=== PATIENT | male | born 1985 | race Caucasian/White ===

== ENCOUNTER 2019-01-17 21:58 | Inpatient (IN) | payer OTHER ==
[~2019-01-17] VITALS: Ht 188 cm; Wt 84.1 kg
[2019-01-18 01:23] VITALS: Ht 188 cm; Wt 84.1 kg
--- NOTE | 2019-01-18 01:40 | HP ---
Date/Time of Note Date/Time of Note DATE: 01/18/19 TIME: 01:40 Assessment/Plan VTE Prophylaxis SCD applied (from Nsg): Yes Pharmacological prophylaxis: NA/contraindicated Pharm contraindication: low risk/ambulating Assessment/Plan Hospital Course This is a 33-year-old male being admitted to the [facility] floor for: #1 bilateral community-acquired pneumonia: Recently treated with azithromycin with no improvement. He was given ceftriaxone and azithromycin from the transferring facility. I will switch the patient to Levaquin 750 mg IV every 24 hours. #2 chest pain: Rule out ACS versus costochondritis secondary to cough from pneumonia, patient also is a IV drug user.. Will trend cardiac enzymes x2, will check an echocardiogram as well especially in the setting of IV drug use. 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 We will need to encourage cessation. Smoking cessation encouraged #4 homelessness: Social work consult #5 suicidal ideation: At the current time patient does not reporting any suicidal ideation. Patient was evaluated by telemetry psychiatry at the transfer facility for his supposed suicidal ideation. Patient was not deemed a 5150 hold as per the ED physician. Nor does he require inpatient psych admission. Will place a psychiatric consult. #6 DVT GI prophylaxis: SCDs, no GI prophylaxis indicated Further treatment strategy will be implemented as per the clinical course. HPI/ROS Admit Date/Time Admit Date/Time Jan 18, 2019 at 01:14 Hx of Present Illness Chief complaint: Shortness of breath This is a 33-year-old male who presented to [facility] complaining of shortness of breath and chest pain that started approximately 2 nights after using IV drugs. He was diagnosed with bronchitis that an outside hospital he was given a Z-Alex. The apparently chest x-ray at that time was negative. He p resented to [facility] complaining of a cough but denied any fevers. He is homeless. He did report using heroin and meth every day he also reported suicidal ideation due to doing drugs and being homeless and being kicked out from the family. He denied any plan for suicidal ideation and denied any homicidal ideation. Vitals on presentation at the transferring hospital were blood pressure 100/61 temperature 37.1C pulse 70 sp02 98% on room air respirations 18. Chest x-ray showed a right-sided upper lobe infiltrate as well as left basilar infiltrates. He was treated with ceftriaxone and azithromycin. Patient was evaluated by telemetry psychiatry at the transfer facility for his supposed suicidal ideation. Patient was not deemed a 5150 hold as per the ED physician. Nor does he require inpatient psych admission. Pertinent laboratory findings from the transfer facility Lactic acid 1.76 Urine drug screen: Opioids, methamphetamine White blood cell count 11.6/hemoglobin 11/hematocrit 32.4 BMP: Sodium 136 potassium 3.9 chloride 100 carbon dioxide 18 BUN 10 creatinine 0.82 next Chest x-ray: Right upper lobe and left basilar infiltrate, finding consistent with pneumonia next EKG: Normal sinus rhythm no ST elevation or depression. No T wave inversion. ROS Const: As per HPI Eyes : No pain discharge or redness or change in visual acuity ENT: No pain, sore throat, congestion, congestion, dysphagia or discharge Respiratory: As per HPI Cardiovascular: No chest pain, palpitation, PND, or edema GI : no change in appetite, abdominal pain, nausea, vomiting, diarrhea, constipation, or change in the color his stool Genitourinary: No dysuria, hematuria, flank pain , discharge or CVA tenderness Musculoskeletal: No joint pain, back pain, neck pain, restricted range of motion in neck or joints Skin: No rash, bruising or hives Neuro: No headache, dizziness, syncope, seizure, focal weakness Endocrine: No polyuria, polydipsia, temperature intolerance Psych: No hallucination, depression, anxiety or suicidal ideation PMH/Family/Social Past Medical History Medical History: no pertinent history Coded Allergies: No Known Allergy (Unverified , 01/18/19) Past Surgical History Past Surgical Hx: no surgical history Social History Smoking Status: Current some day smoker Drug Use: other (Heroin, meth) Exam/Review of Systems Exam Exam General: Patient is currently lying in bed in no acute distress, he appears calm HEENT: Atraumatic, normocephalic. The pupils are equal, round and reactive. Extraocular motor are intact Neck: Supple with full range of motion. No rigidity or meningismus Chest: Nontender Lungs: Coarse breath sounds bilaterally, rales at the right upper lobe Heart: Normal S1-S2, Regular rhythm and rate. Abdomen: Soft , nontender, nondistended , bowel sounds are present. No guarding no rebound tenderness , No masses or organomegaly. No costovertebral temporal angle mass Extremities: Normal to inspection, no edema no cyanosis Neurologic: Normal mental status, speech normal, cranial nerves II through XII are intact, motor and sensory are intact, GARY ARAYA Jan 18, 2019 01:40
[2019-01-18 02:00] VITALS: BP 116/72; PULSE 70; RESP 19
[2019-01-18] MEDS ORDERED: HYDROCODONE/APAP (5/325) TAB PO PRN (02:00)
[2019-01-18] MEDS ORDERED: NACL 0.9% 3 ML SYG IV SCH (02:00)
[2019-01-18] MEDS ORDERED: ACETAMINOPHEN 325 MG TAB PO PRN (02:00)
[2019-01-18] MEDS ORDERED: BISACODYL (EC) 5 MG TAB PO PRN (02:00)
[2019-01-18] MEDS ORDERED: DOCUSATE SODIUM 100 MG CAP PO PRN (02:00)
[2019-01-18] MEDS ORDERED: ONDANSETRON 4 MG TAB PO PRN (02:00)
[2019-01-18] MEDS: LEVOFLOXACIN 750MG/D5W (PMX) 150 ML IVPB SCH (05:55)
[2019-01-18 07:53] VITALS: BP 110/69; PULSE 71; RESP 16
[2019-01-18] MEDS: BENZONATATE 100 MG CAP PO SCH ×3 (09:30→20:24)
[2019-01-18 13:48] VITALS: BP 111/59; PULSE 86; RESP 16
--- NOTE | 2019-01-18 13:48 | PN ---
Date/Time of Note Date/Time of Note DATE: 01/18/19 TIME: 13:41 Assessment/Plan VTE Prophylaxis Risk score (from Nsg)>0 risk: 2 SCD applied (from Nsg): Yes Pharmacological prophylaxis: NA/contraindicated Pharm contraindication: low risk/ambulating Lines/Catheters IV Catheter Type (from Nrsg): Saline Lock Assessment/Plan Assessment/Plan 33 yo IV drug user admitted for community-acquired pneumonia #CAP - Patient gives inconsistent timeline, it sounds like he was treated with azithromycin which he has now completed. - Current symptoms of acute dyspnea occurred after repeat amphetamine use - Findings on CXR may be from pneumonia several days ago which was already yamil ated. Infiltrates on CXR can take weeks to resolve. - Patient is now sitting comfortably, breathing room air. - For now, will continue levofloxacin. #Chest pain - Transient, occurred after using amphetamines. Likely due to acute vasospasm or demand. - ACS: trops negative x2 - Chest pain now resolved. - In this young man with few cardiac risk factors will not pursue further cardiac workup. # illicit drug use: IV meth and heroin user. We will need to encourage cessation. Smoking cessation encouraged # homelessness: Social work consult # suicidal ideation: - At the current time patient does not report any suicidal or homicidal ideation. - Patient was evaluated by telemetry psychiatry at the transfer facility for his supposed suicidal ideation. - Patient was not deemed a 5150 hold as per the ED physician. Nor does he require inpatient psych admission. - Will consult Lorrie. # DVT GI prophylaxis: SCDs, no GI prophylaxis indicated Dispo: Patient is medically clear for discharge, possibly with oral fluoroquinolones. Will keep for placement. Result Diagram: 01/18/19 0351 01/18/19 0351 Subjective 24 Hr Interval Summary Free Text/Dictation No acute overnight events. Patient sitting up in bed comfortably on his laptop, breathing room air. Exam/Review of Systems Exam Vitals Vital Signs Date Temp Pulse Resp B/P (MAP) Pulse Ox O2 O2 Flow FiO2 Time Delivery Rate 01/18/19 99.0 71 16 110/69 99 07:53 (83) Exam General: Clean, well groomed man currently sitting up in bed on his laptop. HEENT: Atraumatic, normocephalic. The pupils are equal, round and reactive. Extraocular motor are intact Neck: Supple with full range of motion. No rigidity or meningismus Chest: Nontender Lungs: Coarse breath sounds bilaterally Heart: Normal S1-S2, Regular rhythm and rate. Abdomen: Soft , nontender, nondistended , bowel sounds are present. No guarding no rebound tenderness , No masses or organomegaly. No costovertebral temporal angle mass Extremities: Normal to inspection, no edema no cyanosis Results Results 24hrs Laboratory Tests Test 01/18/19 03:51 01/18/19 06:21 01/18/19 11:14 White Blood Count 8.2 Red Blood Count 3.77 L Hemoglobin 10.8 L Hematocrit 32.1 L Mean Corpuscular Volume 85.1 Mean Corpuscular Hemoglobin 28.6 L Mean Corpuscular Hemoglobin Concent 33.6 Red Cell Distribution Width 13.3 Platelet Count 186 Mean Platelet Volume 9.9 Immature Granulocytes % 2.900 H Neutrophils % 74.1 Lymphocytes % 11.8 L Monocytes % 8.0 Eosinophils % 2.8 Basophils % 0.4 Nucleated Red Blood Cells % 0.0 Immature Granulocytes # 0.240 H Neutrophils # 6.1 Lymphocytes # 1.0 Monocytes # 0.7 Eosinophils # 0.2 Basophils # 0.0 Nucleated Red Blood Cells # 0.0 Sodium Level 140 Potassium Level 4.1 Chloride Level 103 Carbon Dioxide Level 27 Anion Gap 10 Blood Urea Nitrogen 9 Creatinine 0.67 Est Glomerular Filtrat Rate mL/min > 60 Glucose Level 110 Calcium Level 9.0 Magnesium Level 2.4 Total Bilirubin 0.5 Direct Bilirubin 0.00 Indirect Bilirubin 0.5 Aspartate Amino Transf (AST/SGOT) 23 Alanine Aminotransferase (ALT/SGPT) 28 Alkaline Phosphatase 101 Total Protein 6.3 Albumin 3.1 L Globulin 3.20 Albumin/Globulin Ratio 0.96 Triglycerides Level 103 Cholesterol Level 77 L LDL Cholesterol, Calculated 43 HDL Cholesterol 13 L Cholesterol/HDL Ratio 5.9 Thyroid Stimulating Hormone (TSH) 0.391 L Creatine Kinase 25 31 Creatine Kinase Index 1.4 0.7 Creatinine Kinase MB (Mass) 0.34 0.22 Troponin I < 0.012 < 0.012 Medications Medication Current Medications IV Flush (NS 3 ml) 3 ml PER PROTOCOL IV ; Start 01/18/19 at 02:00 Ondansetron HCl (Zofran Tab) 4 mg Q6H PRN PO NAUSEA/VOMITING; Start 01/18/19 at 02:00 Acetaminophen (Tylenol Tab) 650 mg Q6H PRN PO .PAIN 1-3 OR TEMP; Start 01/18/19 at 02:00 Acetaminophen/ Hydrocodone Bitart (Anna (5/325)) 1 tab Q6H PRN PO .MOD PAIN 4-6; Start 01/18/19 at 02:00 Docusate Sodium (Colace) 100 mg Q12H PRN PO .CONSTIPATION; Start 01/18/19 at 02:00 Bisacodyl (Dulcolax) 5 mg DAILY PRN PO .CONSTIPATION; Start 01/18/19 at 02:00 Levofloxacin/ Dextrose 150 ml @ 100 mls/hr Q24H IVPB Last administered on 01/18/19at 05:55; Admin Dose 100 MLS/HR; Start 01/18/19 at 06:00 Benzonatate (Tessalon) 100 mg TID PO Last administered on 01/18/19at 12:53; Admin Dose 100 MG; Start 01/18/19 at 09:00 TARA ZACARIAS MD Jan 18, 2019 13:48
--- NOTE | 2019-01-18 19:22 | RADRPT ---
Echocardiogram Report Patient Name: PARVIN VALDESPatient ID: [id number] : 1985 (33y 8m)Study Date: 01/18/2019 9:51:14 AM Gender: Isabellacession #: [id number] Tech: LE Location: Ref.Physician: GARY ARAYA Height(Cm): BSA: Weight(Kg): Quality: GoodAccount #: Procedures: Echocardiographic Report: Transthoracic echocardiogram with complete 2D, M-Mode, and doppler examination. Indications: Chest Pain. Measurements: 2D/M Mode Doppler Measurement Value Normal Range Measurement Value Normal Range LVIDd 2D 4.8 [ 4.2 - 5.8 ] cm BRITTANY Vmax 2.9 [ 2.0 - 4.0 ] cm2 LVIDs 2D 3.3 [ 2.5 - 4.0 ] cm AV Mean Jason 1.0 [ 70.0 - 90.0 ] cm/sec LVPWd 2D 1.0 [ 0.6 - 1.0 ] cm AV Mean PG 4.0 [ 2.0 - 4.0 ] mmHg IVSd 2D 1.0 [ 0.6 - 1.0 ] cm AV Peak Jason 1.3 [ 100.0 - 170.0 ] cm/sec IVS/LVPW 2D 1.0 ratio AV Peak PG 6.0 [ 2.0 - 9.0 ] mmHg LVOT Diam 2.1 [ 2.3 - 2.9 ] cm AV VTI 24.5 cm LVOT Area 3.5 cm2 LVOT Peak Jason 1.0 [ 70.0 - 110.0 ] cm/sec LVOT Peak PG 4.0 [ 2.0 - 6.0 ] mmHg MV E Peak Jason 0.8 [ 60.0 - 130.0 ] cm/sec MV A Peak Jason 0.4 [ 100.0 - 120.0 ] cm/sec MV E/A 1.8 [ 0.8 - 1.5 ] ratio MV Decel Time 215 [ 104 - 258 ] msec Lat E` Jason 0.2 [ 10.0 - 15.0 ] cm/sec Med E` Jason 0.1 cm/sec MV E/A 1.8 [ 0.8 - 1.5 ] ratio Findings: Left Ventricle: Normal left ventricular systolic function. Normal left ventricular cavity size. Normal left ventricular wall thickness. Ejection fraction is visually estimated at 60 %. Tissue Doppler/Mitral Doppler indices are within normal limits. Right Ventricle: Normal right ventricular size. Normal right ventricular systolic function. Left Atrium: The left atrium is normal in size. Right Atrium: The right atrium is normal in size. Mitral Valve: Normal appearance and function of the mitral valve with trace physiologic regurgitation. Aortic Valve: Normal appearance of the aortic valve. No significant aortic stenosis or insufficiency. Tricuspid Valve: Normal appearance and function of the tricuspid valve with trace physiologic regurgitation. Pulmonic Valve: Pulmonic valve not well visualized. Pericardium: Normal pericardium with no significant pericardial effusion. Aorta: Normal aortic root. IVC: Normal size and normal respiratory collapse consistent with normal right atrial pressure. Conclusions: Normal left ventricular systolic and diastolic function. Trace mitral and tricuspid regurgitation. Electronically Signed By: Soniya Calvo 2019-01-18 19:22:15 PDT
[2019-01-18 21:34] VITALS: BP 119/79; PULSE 69; RESP 18
[2019-01-19 02:12] VITALS: BP_SYST 112; BP_SYST 72; BP_DIAS 72; PULSE 87; RESP 18
[2019-01-19] MEDS: LEVOFLOXACIN 750MG/D5W (PMX) 150 ML IVPB SCH (05:23)
[2019-01-19 07:25] VITALS: BP 119/81; PULSE 66; RESP 16
[2019-01-19] MEDS: BENZONATATE 100 MG CAP PO SCH (08:26)
--- NOTE | 2019-01-19 16:13 | DS ---
Date/Time of Note Date/Time of Note DATE: 01/19/19 TIME: 16:12 Discharge Summary Admission/Discharge Info Admit Date/Time Jan 18, 2019 at 01:14 Discharge Date/Time Jan 19, 2019 at 09:27 Discharge Diagnosis Patient left AGAINST MEDICAL ADVICE #CAP - Patient gives inconsistent timeline, it sounds like he was treated with azithromycin which he has now completed. - Current symptoms of acute dyspnea occurred after repeat amphetamine use - Findings on CXR may be from pneumonia several days ago which was already treated. Infiltrates on CXR can take weeks to resolve. - Patient is now sitting comfortably, breathing room air. - For now, will continue levofloxacin. #Chest pain - Transient, occurred after using amphetamines. Likely due to acute vasospasm or demand. - ACS: trops negative x2 - Chest pain now resolved. - In this young man with few cardiac risk factors will not pursue further cardiac workup. # illicit drug use: IV meth and heroin user. We will need to encourage cessation. Smoking cessation encouraged # homelessness: Social work consult # suicidal ideation: - At the current time patient does not report any suicidal or homicidal ideation. - Patient was evaluated by telemetry psychiatry at the transfer facility for his supposed suicidal ideation. - Patient was not deemed a 5150 hold as per the ED physician. Nor does he require inpatient psych admission. - Will consult Lorrie from psychiatry team. Patient Condition: Serious Hx of Present Illness 33-year-old male who presented to [facility] complaining of shortness of breath and chest pain that started approximately 2 nights after using IV drugs. He was diagnosed with bronchitis that an outside hospital he was given a Z-Alex. The apparently chest x-ray at that time was negative. He presented to [facility] complaining of a cough but denied any fevers. He is homeless. He did report using heroin and meth every day he also reported suicidal ideation due to doing drugs and being homeless and being kicked out from the family. He denied any plan for suicidal ideation and denied any homicidal ideation. Vitals on presentation at the transferring hospital were blood pressure 100/61 temperature 37.1C pulse 70 sp02 98% on room air respirations 18. Chest x-ray showed a right-sided upper lobe infiltrate as well as left basilar infiltrates. He was treated with ceftriaxone and azithromycin. Patient was evaluated by telemetry psychiatry at the transfer facility for his supposed suicidal ideation. Patient was not deemed a 5150 hold as per the ED physician. Nor does he require inpatient psych admission. Pertinent laboratory findings from the transfer facility Lactic acid 1.76 Urine drug screen: Opioids, methamphetamine White blood cell count 11.6/hemoglobin 11/hematocrit 32.4 BMP: Sodium 136 potassium 3.9 chloride 100 carbon dioxide 18 BUN 10 creatinine 0.82 next Chest x-ray: Right upper lobe and left basilar infiltrate, finding consistent with pneumonia next EKG: Normal sinus rhythm no ST elevation or depression. No T wave inversion. Hospital Course #CAP - Patient gives inconsistent timeline, it sounds like he was treated with azithromycin which he has now completed. - Current symptoms of acute dyspnea occurred after repeat amphetamine use - Findings on CXR may be from pneumonia several days ago which was already treated. Infiltrates on CXR can take weeks to resolve. - Patient is now sitting comfortably, breathing room air. - For now, will continue levofloxacin. #Chest pain - Transient, occurred after using amphetamines. Likely due to acute vasospasm or demand. - ACS: trops negative x2 - Chest pain now resolved. - In this young man with few cardiac risk factors will not pursue further cardiac workup. # illicit drug use: IV meth and heroin user. We will need to encourage cessation. Smoking cessation encouraged # homelessness: Social work consult # suicidal ideation: - At the current time patient does not report any suicidal or homicidal ideation. - Patient was evaluated by telemetry psychiatry at the transfer facility for his supposed suicidal ideation. - Patient was not deemed a 5150 hold as per the ED physician. Nor does he require inpatient psych admission. - Will consult Lorrie from psychiatry team. Primary Care Provider Care Physician No Primary Time spent on discharge: < 30 minutes MEENAKSHI QUIJANO Jan 19, 2019 16:13
== END 2019-01-19 09:27 | disposition left against medical advice (07) | DRG 194 ==
LOC: PP2 01-18 01:14
PROVIDERS: ADMIT Family Medicine; ATTEND Hospitalist
DX: J18.9 Pneumonia, unspecified organism (principal); R45.851 Suicidal ideations; R07.9 Chest pain, unspecified; Z59.0 Homelessness; F15.10 Other stimulant abuse, uncomplicated
CPT/HCPCS: 71045; 80053; 80061; 82550; 82553; 83735; 84443; 84484; 85025; 87040; 87081; 93306; J1956